=== PATIENT | female | born 1975 | race Caucasian/White ===

== ENCOUNTER 2019-07-14 19:31 | Emergency (ER) | payer MEDICAID ==
[2019-07-14] MEDS ORDERED: HYDROmorphone 1 MG/ML Syringe IM ONE ×2 (20:26→23:18)
[2019-07-14] MEDS ORDERED: Promethazine 25 MG/ML SDV IM ONE (20:26)
--- NOTE | 2019-07-14 20:29 | EDM.PDOC ---
ED HPI GENERAL MEDICAL PROBLEM - General Chief Complaint: Abdominal Pain Stated Complaint: ABDOMINAL PAIN POST OP Time Seen by Provider: 07/14/19 20:25 Source of Information: Reports: Patient, Family (spouse) History Limitations: Reports: No Limitations - History of Present Illness INITIAL COMMENTS - FREE TEXT/NARRATIVE: 44-year-old female presents to the ED with diffuse abdominal pain perhaps worse on the left side radiating up into her left shoulder. Patient underwent repair of a large ventral hernia in the [facility] 4 days ago and believes it have mesh graft placement. She has multiple ports of entry in her abdominal wall and quite marked bruising across the mid abdomen bilaterally. She states she was on Dilaudid 2 mg tablets every 4 hours but ran out day and a half ago and with discussion with them today they prefer that she be seen in the ED versus just trying to refill pain meds over the phone. They felt that after 3 days she should started to be recovering quite well. Patient reports she has been eating and taking fluids. She has had 2 formed bowel movement since surgery. She reports she is still passing a lot of flatus. Her abdomen still feels very swollen particularly in the midline adjacent and slightly superior to the umbilicus bilaterally. Still having a pleuritic type pain in her left anterior superior shoulder likely from air trapped in the left hemidiaphragm area. She has had no nausea or vomiting Onset: Gradual Onset Date: 07/10/19 (Surgical procedure was done on the at the [facility].) Duration: Day(s):, Constant, Getting Worse Location: Reports: Chest, Abdomen (Left upper anterior chest discomfort particular in the supraclavicular fossa. Mid abdominal pain slightly worse on the left side as compared to the right.) Quality: Reports: Ache, Throbbing Severity: Severe Improves with: Reports: Rest (To 9 out of 10.) Worsens with: Reports: Other Context: Denies: Activity (It is particularly bad with movement trying to set up is extremely difficult.), Exercise, Lifting, Sick Contact, Trauma, Other Associated Symptoms: Reports: Shortness of Breath (Subjective short of breath as it makes the pain worse in her abdomen.). 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 (see below) (None) Abdomen Pain Score (Numeric/FACES): 10 - Related Data Allergies Allergy/AdvReac Type Severity Reaction Status Date / Time codeine Allergy Chest Pain Verified 07/14/19 19:59 oxycodone Allergy Chest Pain Verified 07/14/19 19:59 Home Meds: Home Meds HYDROmorphone [Dilaudid] 4 mg PO Q4H PRN #20 tab 07/14/19 [Rx] Ondansetron [Zofran] 4 mg BUCCAL Q6H PRN #8 tab 07/14/19 [Rx] Past Medical History Gastrointestinal History: Reports: Bowel Obstruction 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[employer] EQUIPMENT History: Reports: Endometriosis, Other (See Below) Other 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CONTROL EQUIPMENT History: hysterectomy Psychiatric History: Reports: Anxiety Endocrine/Metabolic History: Reports: Other (See Below) Other Endocrine/Metabolic History: osteomylitis, Multi-level degenerative disk disease - Past Surgical History GI Surgical History: Reports: Appendectomy, Cholecystectomy, Hernia, Abdominal, Hernia Repair/Other, Other (See Below) Other GI Surgeries/Procedures: gastric bipass Social & Family History - Tobacco Use Smoking Status *Q: Never Smoker Second Hand Smoke Exposure: No - Caffeine Use Caffeine Use: Reports: None - Recreational Drug Use Recreational Drug Use: No ED ROS GENERAL - Review of Systems Review Of Systems: See Below Constitutional: Reports: Malaise, Weakness, Fatigue, Decreased Appetite. Denies : Fever, Chills HEENT: Reports: No Symptoms Respiratory: Reports: Shortness of Breath, Other (Pain left upper anterior shoulder in the supraclavicular fossa). Denies: Cough Cardiovascular: Reports: No Symptoms, Chest Pain. Denies: Blood Pressure Problem, Claudication (Supraclavicular fossa), Dyspnea on Exertion, Edema, Lightheadedness, Orthopnea Endocrine: Reports: No Symptoms GI/Abdominal: Reports: Abdominal Pain (Use mid abdominal pain. Patient has had multiple ports of entry from laparoscopic surgery for repair of a large ventral hernia presumably with a large mesh graft on the of this month.) : Reports: No Symptoms Musculoskeletal: Reports: No Symptoms Skin: Reports: Bruising (Marked ecchymoses and swelling of the mid abdominal wall bilaterally.) Neurological: Reports: No Symptoms Psychiatric: Reports: No Symptoms Hematologic/Lymphatic: Reports: No Symptoms ED EXAM, GI/ABD - Physical Exam Exam: See Below Exam Limited By: No Limitations General Appearance: Alert, WD/WN, Moderate Distress (She does appear to be in a good deal of discomfort. Temperature is 36.2. Heart rate is 85 and sinus respiratory is 18 and O2 sats 100% on room air BP 1 3974.), Other Eyes: Bilateral: Normal Appearance (No peripheral pallor or) Throat/Mouth: Normal Inspection, Normal Lips, Normal Oropharynx Head: Atraumatic, Normocephalic Neck: Normal Inspection, Supple, Non-Tender, Full Range of Motion. No: Lymphadenopathy (L), Lymphadenopathy (R) Respiratory/Chest: No Respiratory Distress, Lungs Clear, Normal Breath Sounds, No Accessory Muscle Use, Chest Non-Tender Cardiovascular: Normal Peripheral Pulses, Regular Rate, Rhythm, No Edema, No Gallop, No Murmur, No Rub GI/Abdominal Exam: Distended (Sounds are quite active in all 4 quadrants. Mildly diffusely distended and slightly tympanitic to percussion.), Abnormal Bowel Sounds, Other (Has 6 ports of entry from her laparoscopic surgery. All wounds appear to be healing satisfactorily. There is a large ridge of bruising and hematoma formation across the mid abdomen adjacent to the umbilicus and slightly superior to the umbilicus. It is worse on the left side as compared to the right. The radicular pain in the left hemiabdomen may be due to injury to the superficial epigastric nerves and secondary to hematoma swelling. Seems to be where she is most tender.) Back Exam: Normal Inspection, Full Range of Motion. No: CVA Tenderness (L), CVA Tenderness (R) Extremities: Normal Inspection, Normal Range of Motion, Non-Tender Neurological: Alert, Oriented, CN II-XII Intact, Normal Cognition. No: Normal Gait Psychiatric: Normal Affect, Other Skin Exam: Warm (There is to be in a good deal of pain.), Dry, Intact, Other ( Linear bruising across the mid abdominal wall. Not necessarily more than 1 would anticipate from the nature of the surgery she underwent.) Course - Vital Signs Last Recorded V/S: Last Vital Signs Temp 36.2 C 07/14/19 19:54 Pulse 85 07/14/19 19:54 Resp 18 07/14/19 19:54 BP 139/74 07/14/19 19:54 Pulse Ox 100 07/14/19 19:54 - Orders/Labs/Meds Orders: Active Orders 24 hr Category Date Time Status Abdomen 1V Upright [CR] Stat Exams 07/14/19 20:27 Taken Chest 1V Frontal [CR] Stat Exams 07/14/19 20:26 Taken Meds: Medications Discontinued Medications Generic Name Dose Route Start Last Admin Trade Name Roderickq PRN Reason Stop Dose Admin Hydromorphone HCl 1 mg 07/14/19 20:26 07/14/19 20:48 Dilaudid IM 07/14/19 20:27 1 mg ONETIME ONE Administration Hydromorphone HCl 4 mg 07/14/19 22:42 07/14/19 23:25 Dilaudid PO 07/14/19 22:43 Not Given ONETIME ONE Hydromorphone HCl 1.5 mg 07/14/19 23:18 07/14/19 23:32 Dilaudid IM 07/14/19 23:19 1.5 mg ONETIME ONE Administration Promethazine HCl 25 mg 07/14/19 20:26 07/14/19 20:48 Phenergan IM 07/14/19 20:27 25 mg ONETIME ONE Administration - Radiology Interpretation Free Text/Narrative:: 44-year-old female presents to the ED diffuse abdominal pain rating up into her left supraclavicular fossa of her shoulder. She underwent a laparoscopic abdominal hernia repair on the of this month at the [facility]. She states she was on Dilaudid 2 mg tablets x2 almost every 4-6 hours for pain relief but ran out yesterday. She been taking Motrin and Tylenol without any relief. She is still passing flatus. She still taking oral fluids. Bowel sounds are quite active in all 4 quadrants. She has a large amount of hematoma adjacent to the umbilicus bilaterally and slightly superior to the umbilicus. The hematoma is worse on the left side as compared to the right. She appears to have irritation of the superficial epigastric nerve with referred pain up into the left hemiabdomen and suspect still residual free air up underneath the left hemidiaphragm giving her pain referred up into her left anterior shoulder. Plan: Cute pain relief. She will have an x -ray of her chest so that I can visualize the superior part of the left lung as well as check for air free air underneath her left hemidiaphragm and a 1 view x- ray of her abdomen. - Re-Assessments/Exams Free Text/Narrative Re-Assessment/Exam: 07/14/19 23:19 apparently we do not have any more phone tablets in the hospital. I was planning to send her home with hydromorphone 4mg tablets as she has she has been using 4 mg every 4-6 hours postoperatively. The plan will be now to give her a repeat Dilaudid injection of 1.5 mg to try and get her through the night with regards to pain relief. She will then have a prescription filled tomorrow morning for this medication for 20 more tablets. Follow up with personal care physician if any further problems occur. Departure - Departure Time of Disposition: 22:43 Disposition: Home, Self-Care 01 Condition: Fair Clinical Impression: Postoperative abdominal pain Left shoulder pain Qualifiers: Chronicity: acute Qualified Code(s): M25.512 - Pain in left shoulder - Discharge Information *PRESCRIPTION DRUG MONITORING PROGRAM REVIEWED*: Not Applicable *COPY OF PRESCRIPTION DRUG MONITORING REPORT IN PATIENT EMILY: Not Applicable Prescriptions: HYDROmorphone [Dilaudid] 4 mg PO Q4H PRN #20 tab PRN Reason: post op pain Ondansetron [Zofran] 4 mg BUCCAL Q6H PRN #8 tab PRN Reason: nausea or vomiting Instructions: Shoulder Pain, [id number], Abdominal Pain, Adult, [id number] Referrals: PCP,Not In Area [Ordering Only Provider] - Forms: ED Department Discharge Additional Instructions: Evaluation in the emergency room tonight in regards to continued diffuse mid abdominal pain worse on the left side since operation of days ago at the [facility] with large ventral hernia repair. Of a hematoma or collection of blood under the skin across the upper mid abdomen both on the right and left side. I think that there is some involvement of the superior epigastric nerve causing pain rating up towards her left diaphragm and abdomen. This is likely from pressure on the nerve from blood collection under the skin. Referred pain up into the left shoulder is also evident likely still from residual air up underneath your left diaphragm after laparoscopy. Trays of the chest done in the ED tonight are completely normal. X-rays of the abdomen show a lot of gas collection underneath the left hemidiaphragm but no signs of a bowel obstruction. No signs of any significant constipation either. There for pain is simply still postoperative pain with irritation I believe of superficial nerves of the abdominal wall. Expect gradual improvement over the next 7 days. Continue hot packs to the area 1/2-hour out of every 4 hours to help the hematoma breakdown and her body to reabsorb the blood. May continue to use hydromorphone 4 mg tablet every 4-6 hours as necessary for pain relief. 6 hours as needed for relief of any nausea. Return to the ED if not markedly improved in 48 to 72 hours. Sepsis Event Note - Evaluation Sepsis Screening Result: No Definite Risk - Focused Exam Vital Signs: Vital Signs Temp Pulse Resp BP Pulse Ox 07/14/19 19:54 36.2 C 85 18 139/74 100 Date Exam was Performed: 07/15/19 Time Exam was Performed: 04:09 - My Orders Last 24 Hours: My Active Orders 07/14/19 20:26 Chest 1V Frontal [CR] Stat 07/14/19 20:27 Abdomen 1V Upright [CR] Stat - Assessment/Plan Last 24 Hours: My Active Orders 07/14/19 20:26 Chest 1V Frontal [CR] Stat 07/14/19 20:27 Abdomen 1V Upright [CR] Stat
[2019-07-14] MEDS ORDERED: HYDROmorphone 2 MG Tab PO ONE (22:42)
--- NOTE | 2019-07-15 08:11 | CR ---
Abdomen: Upright view of the abdomen was obtained. Comparison: No previous study. Gas is noted within the transverse and left colon and rectosigmoid regions. Increased small bowel gas is also noted within the abdomen. Surgical clips are seen within the left upper abdomen with surgical anastomotic sutures presumably due to previous stomach surgery. Prior cholecystectomy is noted. Bony structures show minimal scoliosis within the spine with slight degenerative change. Impression: 1. Slightly prominent gas within portions of colon and small bowel. Findings are most likely due to ileus. 2. Other findings as noted above. Diagnostic code #3 This report was dictated in [place] Standard Time
--- NOTE | 2019-07-15 08:11 | CR ---
Chest: Frontal view of the chest was obtained. Comparison: No previous chest x-ray. Heart size and mediastinum are normal. Lungs are clear with no acute parenchymal change. Bony structures are grossly intact. Impression: 1. Nothing acute is appreciated on PA chest x-ray. Diagnostic code #1 This report was dictated in [place] Standard Time
== END 2019-07-14 23:35 | disposition home or self-care (01) ==
LOC: JD.ED 19:31
DX: G89.18 Other acute postprocedural pain (principal); R10.9 Unspecified abdominal pain; M25.512 Pain in left shoulder; Z88.5 Allergy status to narcotic agent
CPT/HCPCS: 71045; 74018; 96372; 99284; J1170; J2550